=== PATIENT | male | born 1990 | race African-American/Black ===

== ENCOUNTER 2017-07-20 07:46 | Emergency (ER) | payer MEDICARE, MEDICAID ==
[~2017-07-20] VITALS: Ht 182.9 cm; Wt 77.0 kg
[2017-07-20 07:58] VITALS: BP 125/79
== END 2017-07-20 10:09 | disposition home or self-care (01) ==
LOC: ER 09:48
DX: R10.9 Unspecified abdominal pain (principal)
CPT/HCPCS: 99282

== ENCOUNTER 2017-11-12 08:11 | Emergency (ER) | payer MEDICARE, MEDICAID ==
[~2017-11-12] VITALS: Ht 182.9 cm; Wt 77.0 kg
[2017-11-12 08:28] VITALS: BP 124/77
== END 2017-11-12 10:59 | disposition home or self-care (01) ==
LOC: ER 08:58
DX: K14.0 Glossitis (principal); R22.0 Localized swelling, mass and lump, head
CPT/HCPCS: 99281

== ENCOUNTER 2018-07-04 21:02 | Emergency (ER) | payer MEDICARE ==
[~2018-07-04] VITALS: Ht 177.8 cm; Wt 73.7 kg
[2018-07-04 22:42] VITALS: BP 135/67
[2018-07-04] MEDS ORDERED: IBUPROFEN 600MG TABLET PO ONE (23:45)
[2018-07-04 23:53] LABS: CLARITY URINE TURBID (CLEAR); COLOR URINE YELLOW (YELLOW); KETONES URINE NEGATIVE (NEGATIVE); LEUKOCYTE ESTERASE URINE NEGATIVE (NEGATIVE); NITRITE URINE NEGATIVE (NEGATIVE); OCCULT BLOOD URINE NEGATIVE (NEGATIVE); PROTEIN URINE NEGATIVE (NEGATIVE)
== END 2018-07-05 02:00 | disposition home or self-care (01) ==
LOC: ER 07-05 01:51
DX: Z20.2 Contact with and (suspected) exposure to infections with a predominantly sexual mode of transmission (principal); F17.200 Nicotine dependence, unspecified, uncomplicated
CPT/HCPCS: 81003; 99283

== ENCOUNTER 2018-07-10 09:16 | Emergency (ER) | payer MEDICARE ==
[~2018-07-10] VITALS: Ht 182.9 cm; Wt 77.0 kg
[2018-07-10] MEDS ORDERED: MAGNESIUM/ALUMINUM HYDROXIDE/SIMETHICONE 30ML UDC PO STA (10:27)
[2018-07-10] MEDS ORDERED: VISCOUS LIDOCAINE 2% 15 ML UDC PO STA (10:27)
[2018-07-10 11:05] LABS: CLARITY URINE CLEAR (CLEAR); COLOR URINE AMBER (YELLOW); KETONES URINE TRACE (NEGATIVE); LEUKOCYTE ESTERASE URINE 1+ (NEGATIVE); NITRITE URINE NEGATIVE (NEGATIVE); OCCULT BLOOD URINE NEGATIVE (NEGATIVE); PH URINE 6.5 (4.5-8.0); PROTEIN URINE NEGATIVE (NEGATIVE); SPECIFIC GRAVITY URINE 1.026 (1.005-1.030); UROBILINOGEN URINE 0.2 E.U./dL (0.2-1.0)
[2018-07-10 12:53] LABS: BASOPHILS % 0.9 % (0.0-2.0); EOSINOPHILS % 2.2 % (0.0-5.0); HEMOGLOBIN. 14.4 g/dL (14.0-18.0); LYMPHOCYTES % 54.2 % (20.0-50.0); MEAN CORPUSCULAR HEMOGLOBIN 27.3 pg (28.0-32.0); MEAN CORPUSCULAR VOLUME 81.6 fL (80.0-94.0); MEAN PLATELET VOLUME 8.4 fl (7.4-10.4); MONOCYTES % 13.3 % (2.0-8.0); NEUTROPHILS % 29.4 % (40.0-76.0); PLATELET 231 x1000/uL (130-400); RED BLOOD CELL COUNT 5.27 mill/uL (4.7-6.1); RED CELL DISTRIBUTION WIDTH 14.4 % (11.6-14.6)
[2018-07-10 13:00] LABS: CHLORIDE 102 mEq/L (98-107)
[2018-07-10] MEDS ORDERED: AZITHROMYCIN 500 MG TABLET PO ONE (13:30)
[2018-07-10] MEDS ORDERED: CEFTRIAXONE SODIUM 250 MG/VIAL IM ONE (13:30)
[2018-07-10 15:09] VITALS: BP 122/76
== END 2018-07-10 15:10 | disposition home or self-care (01) ==
LOC: ER 09:16
DX: R10.13 Epigastric pain (principal); N34.2 Other urethritis
CPT/HCPCS: 36415; 80053; 81003; 83690; 85025; 96372; 99284; J0696

== ENCOUNTER 2019-05-27 08:18 | Emergency (ER) | payer MEDICARE ==
[~2019-05-27] VITALS: Ht 175.3 cm; Wt 73.0 kg
[2019-05-27 08:59] LABS: CLARITY URINE CLEAR (CLEAR); COLOR URINE YELLOW (YELLOW); KETONES URINE NEGATIVE (NEGATIVE); LEUKOCYTE ESTERASE URINE NEGATIVE (NEGATIVE); NITRITE URINE NEGATIVE (NEGATIVE); OCCULT BLOOD URINE NEGATIVE (NEGATIVE); PROTEIN URINE NEGATIVE (NEGATIVE); SPECIFIC GRAVITY URINE 1.009 (1.005-1.030); UROBILINOGEN URINE 0.2 E.U./dL (0.2-1.0)
[2019-05-27] MEDS ORDERED: ONDANSETRON 4MG ODT PO ONE (09:15)
[2019-05-27] MEDS ORDERED: FAMOTIDINE 20MG TABLET PO ONE (09:15)
[2019-05-27 10:51] VITALS: BP 140/72
== END 2019-05-27 10:54 | disposition home or self-care (01) ==
LOC: ER 09:12
DX: K29.70 Gastritis, unspecified, without bleeding (principal); F17.200 Nicotine dependence, unspecified, uncomplicated
CPT/HCPCS: 81003; 99283; Q0162

== ENCOUNTER 2019-06-01 07:11 | Emergency (ER) | payer MEDICARE ==
[~2019-06-01] VITALS: Ht 177.8 cm; Wt 72.0 kg
[2019-06-01 09:34] VITALS: BP 129/81
== END 2019-06-01 09:34 | disposition home or self-care (01) ==
LOC: ER 07:19
DX: K52.9 Noninfective gastroenteritis and colitis, unspecified (principal); J02.9 Acute pharyngitis, unspecified; R50.9 Fever, unspecified
CPT/HCPCS: 87070; 87430; 99283

== ENCOUNTER 2019-06-02 09:26 | Emergency (ER) | payer MEDICARE ==
[~2019-06-02] VITALS: Ht 177.8 cm; Wt 72.0 kg
[2019-06-02] MEDS ORDERED: CEFTRIAXONE SODIUM 250 MG/VIAL IM ONE (10:45)
[2019-06-02] MEDS ORDERED: AZITHROMYCIN 500 MG TABLET PO ONE (10:45)
[2019-06-02 11:53] VITALS: BP 138/77
[2019-06-02 12:04] LABS: CLARITY URINE CLEAR (CLEAR); COLOR URINE DARK YELLOW (YELLOW); KETONES URINE 1+ (NEGATIVE); LEUKOCYTE ESTERASE URINE TRACE (NEGATIVE); NITRITE URINE NEGATIVE (NEGATIVE); OCCULT BLOOD URINE NEGATIVE (NEGATIVE); PROTEIN URINE TRACE (NEGATIVE); SPECIFIC GRAVITY URINE 1.041 (1.005-1.030)
== END 2019-06-02 11:49 | disposition home or self-care (01) ==
LOC: ER 10:04
DX: N34.2 Other urethritis (principal)
CPT/HCPCS: 81003; 96372; 99283; J0696

== ENCOUNTER 2019-06-14 14:08 | Emergency (ER) | payer MEDICARE ==
[~2019-06-14] VITALS: Ht 180.3 cm; Wt 73.0 kg
[2019-06-14 18:16] VITALS: BP 144/81
== END 2019-06-14 18:37 | disposition home or self-care (01) ==
LOC: ER 14:08
DX: K14.3 Hypertrophy of tongue papillae (principal); F12.10 Cannabis abuse, uncomplicated; F17.210 Nicotine dependence, cigarettes, uncomplicated
CPT/HCPCS: 99283

== ENCOUNTER 2019-07-18 14:04 | Emergency (ER) | payer MEDICARE ==
[~2019-07-18] VITALS: Ht 182.9 cm; Wt 73.0 kg
[2019-07-18 17:39] LABS: CLARITY URINE CLEAR (CLEAR); COLOR URINE YELLOW (YELLOW); KETONES URINE TRACE (NEGATIVE); LEUKOCYTE ESTERASE URINE NEGATIVE (NEGATIVE); NITRITE URINE NEGATIVE (NEGATIVE); OCCULT BLOOD URINE NEGATIVE (NEGATIVE); PROTEIN URINE NEGATIVE (NEGATIVE); SPECIFIC GRAVITY URINE 1.025 (1.005-1.030)
[2019-07-18 18:41] VITALS: BP 123/88
== END 2019-07-18 18:49 | disposition home or self-care (01) ==
LOC: ER 14:04
DX: R10.9 Unspecified abdominal pain (principal)
CPT/HCPCS: 81003; 99284

== ENCOUNTER 2019-11-12 22:00 | Emergency (ER) | payer MEDICARE ==
[~2019-11-12] VITALS: Ht 182.9 cm; Wt 73.0 kg
[2019-11-13] MEDS ORDERED: MAGNESIUM/ALUMINUM HYDROXIDE/SIMETHICONE 30ML UDC PO STA (00:22)
[2019-11-13] MEDS ORDERED: VISCOUS LIDOCAINE 2% 15 ML UDC PO STA (00:22)
[2019-11-13] MEDS ORDERED: DICYCLOMINE 10 MG/5 ML ORAL SYR PO STA (00:22)
[2019-11-13 00:53] LABS: BASOPHILS % 0.4 % (0.0-2.0); HEMOGLOBIN. 14.8 g/dL (14.0-18.0); LYMPHOCYTES % 23.2 % (20.0-50.0); MEAN CORPUSCULAR HEMOGLOBIN 27.2 pg (28.0-32.0); MEAN CORPUSCULAR VOLUME 82.7 fL (80.0-94.0); MEAN PLATELET VOLUME 7.8 fl (7.4-10.4); MONOCYTES % 12.4 % (2.0-8.0); PLATELET 252 x1000/uL (130-400); RED BLOOD CELL COUNT 5.44 mill/uL (4.7-6.1); RED CELL DISTRIBUTION WIDTH 14.4 % (11.6-14.6)
[2019-11-13 00:58] LABS: CHLORIDE 102 mEq/L (98-107)
[2019-11-13 01:02] LABS: ETHANOL BLOOD < 10 mg/dL
[2019-11-13 01:17] LABS: CLARITY URINE CLEAR (CLEAR); COLOR URINE DARK YELLOW (YELLOW); KETONES URINE TRACE (NEGATIVE); LEUKOCYTE ESTERASE URINE NEGATIVE (NEGATIVE); NITRITE URINE NEGATIVE (NEGATIVE); OCCULT BLOOD URINE NEGATIVE (NEGATIVE); PH URINE 5.5 (4.5-8.0); PROTEIN URINE NEGATIVE (NEGATIVE)
[2019-11-13 01:32] LABS: *BARBITURATES SCREEN URINE NEGATIVE (NEGATIVE)
[2019-11-13 01:33] LABS: *AMPHETAMINES SCREEN URINE NEGATIVE (NEGATIVE); *BENZODIAZEPINES SCREEN URINE NEGATIVE (NEGATIVE); *COCAINE SCREEN URINE NEGATIVE (NEGATIVE); CANNABINOID URINE SCREEN NEGATIVE (NEGATIVE); METHADONE URINE SCREEN NEGATIVE (NEGATIVE); OPIATES URINE SCREEN NEGATIVE (NEGATIVE); PHENCYCLIDINE URINE SCREEN NEGATIVE (NEGATIVE)
[2019-11-13 01:41] VITALS: BP 124/61
== END 2019-11-13 01:44 | disposition home or self-care (01) ==
LOC: ER 22:00
DX: K21.9 Gastro-esophageal reflux disease without esophagitis (principal); M54.5 Low back pain; F17.290 Nicotine dependence, other tobacco product, uncomplicated; Z87.19 Personal history of other diseases of the digestive system
CPT/HCPCS: 36415; 71045; 80305; 80320; 81003; 99284; 99406; G0480

== ENCOUNTER 2019-11-18 11:59 | Emergency (ER) | payer MEDICARE ==
[~2019-11-18] VITALS: Ht 182.9 cm; Wt 77.0 kg
[2019-11-18] MEDS ORDERED: ACETAMINOPHEN 500MG TABLET PO ONE (17:00)
[2019-11-18 17:30] VITALS: BP 105/80
[2019-11-18] MEDS ORDERED: CEFTRIAXONE SODIUM 250 MG/VIAL IM ONE (18:45)
[2019-11-18] MEDS ORDERED: LIDOCAINE HCL 1% 20ML VIAL (Pyxis) INJ INFIL ONE (18:45)
[2019-11-18] MEDS ORDERED: AZITHROMYCIN 500 MG TABLET PO ONE (18:45)
== END 2019-11-18 19:18 | disposition home or self-care (01) ==
LOC: ER 11:59
DX: N34.2 Other urethritis (principal)
CPT/HCPCS: 76870; 93976; 96372; 99284; J0696; J3490

== ENCOUNTER 2020-10-21 07:15 | Emergency (ER) | payer MEDICARE ==
[~2020-10-21] VITALS: Ht 188 cm; Wt 76.0 kg
[2020-10-21] MEDS ORDERED: ACETAMINOPHEN 325MG TABLET PO ONE (08:00)
[2020-10-21 09:34] LABS: CLARITY URINE CLEAR (CLEAR); COLOR URINE DARK YELLOW (YELLOW); KETONES URINE 1+ (NEGATIVE); LEUKOCYTE ESTERASE URINE TRACE (NEGATIVE); NITRITE URINE NEGATIVE (NEGATIVE); OCCULT BLOOD URINE NEGATIVE (NEGATIVE); PH URINE 6.5 (4.5-8.0); PROTEIN URINE TRACE (NEGATIVE); SPECIFIC GRAVITY URINE 1.032 (1.005-1.030)
[2020-10-21 10:48] VITALS: BP 117/73
== END 2020-10-21 10:49 | disposition home or self-care (01) ==
LOC: ER 07:15
DX: J02.9 Acute pharyngitis, unspecified (principal); N39.0 Urinary tract infection, site not specified
CPT/HCPCS: 81003; 87070; 87430; 99283